=== PATIENT | female | born 1965 | race Caucasian/White ===

== ENCOUNTER → 2017-03-14 | Outpatient (CLI) | payer OTHER | LOC: CFH 09:22 | PROVIDERS: ATTEND Orthopaedic Surgery | DX: Z02.9 Encounter for administrative examinations, unspecified (principal) ==

== ENCOUNTER 2017-04-14 06:57 | Day surgery (SDC) | payer OTHER ==
[~2017-04-14] VITALS: Ht 167.6 cm; Wt 73.4 kg
[~2017-04-14 06:57] MED LIST: BUPIVACAINE/PF 0.5% ONE; FENTANYL PF 100 MCG/2ML ONE; MIDAZOLAM 1 MG/ML, 2ML ONE; cloniDINE/PF 100 MCG/ML, 10 ML ONE
[2017-04-14] MEDS ORDERED: hydrALAzine 20 MG/ML, 1ML IV PRN (07:30)
[2017-04-14] MEDS ORDERED: LORazepam 2 MG/ML, 1ML IVPush PRN (07:30)
[2017-04-14] MEDS ORDERED: PLEASE ENTER HEIGHT AND WEIGHT MC SCH (07:30)
[2017-04-14] MEDS ORDERED: MEPERIDINE/PF 25MG/0.5ML IVPush PRN (07:30)
[2017-04-14] MEDS ORDERED: LABETALOL 5MG/ML, 20ML IV PRN (07:30)
[2017-04-14] MEDS ORDERED: OXYcodone 5 MG/5 ML ORAL.SOL UDC PO PRN (07:30)
[2017-04-14] MEDS ORDERED: MIDAZOLAM 1 MG/ML, 2ML IV PRN (07:30)
[2017-04-14] MEDS ORDERED: ALBUTEROL/IPRATROPIUM 2.5MG/0.5MG, 3 ML NPPB PRN (07:30)
[2017-04-14] MEDS ORDERED: KETOROLAC 30 MG/1 ML IV PRN (07:30)
[2017-04-14] MEDS ORDERED: FENTANYL PF 100 MCG/2ML IV PRN (07:30)
[2017-04-14] MEDS ORDERED: METOCLOPRAMIDE 5 MG/ML, 2ML IV PRN (07:30)
[2017-04-14] MEDS ORDERED: HYDROmorphone 1 MG/ML, 1ML IV PRN (07:30)
[2017-04-14] MEDS ORDERED: PROMETHAZINE 25 MG/ML, 1ML IV PRN (07:30)
[2017-04-14] MEDS ORDERED: ONDANSETRON 2MG/ML, 2ML IVPush PRN (07:30)
[2017-04-14] MEDS ORDERED: ACETAMINOPHEN 325 MG TABLET PO PRN (07:30)
[2017-04-14] MEDS ORDERED: LACTATED RINGERS 1,000 ML IV SCH (07:41)
[2017-04-14 07:57] VITALS: BP 146/81
[2017-04-14] MEDS ORDERED: LIDOCAINE 1%, 2ML SQ PRN (08:00)
[2017-04-14 08:03] LABS: PATH.CAST-FLAG NOT PRESENT; SPERM-FLAG NOT PRESENT; SRC-FLAG NOT PRESENT; XTAL-FLAG NOT PRESENT; YLC-FLAG NOT PRESENT
[2017-04-14 08:04] LABS: HCG UR OBC PASS
[2017-04-14] MEDS ORDERED: SAXA5TAB PO (08:08)
[2017-04-14] MEDS ORDERED: METF850T2 PO (08:08)
[2017-04-14] MEDS ORDERED: SIMV10TA3 PO (08:08)
[2017-04-14] MEDS ORDERED: LEVO112T4 PO (08:08)
[2017-04-14] MEDS ORDERED: LOSA25TA5 PO (08:08)
[2017-04-14] MEDS ORDERED: INSU200I4 SQ (08:08)
[2017-04-14] MEDS ORDERED: FENO48TA5 PO (08:08)
[2017-04-14] MEDS ORDERED: LIDOCAINE 1%, 2ML ONE (08:14)
[2017-04-14] MEDS ORDERED: BUPIVACAINE/PF 0.5% ONE (08:38)
[2017-04-14] MEDS ORDERED: methylPREDNISolone*ACETATE* 80 MG/ML ONE (08:38)
[2017-04-14 08:51] LABS: ASPARTATE AMINO TRANSFERASE 23 U/L (15-37); BLOOD UREA NITROGEN 10 mg/dL (7-18)
[2017-04-14] MEDS ORDERED: metFORMIN 850 MG TABLET PO SCH (09:00)
[2017-04-14] MEDS ORDERED: LEVOTHYROXINE 112 MCG TABLET PO SCH (09:00)
[2017-04-14] MEDS ORDERED: TEMPLATE NON-FORMULARY MED. (Saxagliptin Hcl** (Onglyza**) 5 MG) PO SCH (09:00)
[2017-04-14] MEDS ORDERED: LOSARTAN 25MG TABLET PO SCH (09:00)
[2017-04-14] MEDS ORDERED: FENOFIBRATE NANOCRYSTALLIZED 48 MG PO SCH (09:00)
[2017-04-14] MEDS ORDERED: INSULIN DEGLUDEC 60 UNIT SQ SCH (09:00)
[2017-04-14] MEDS ORDERED: PROPOFOL 10 MG/ML, 20ML ONE (09:14)
[2017-04-14] MEDS ORDERED: SIMVASTATIN 10 MG TABLET PO SCH (21:00)
== END 2017-04-14 10:30 ==
LOC: OUT 06:57
PROVIDERS: ATTEND Orthopaedic Surgery
DX: M75.01 Adhesive capsulitis of right shoulder (principal); E11.9 Type 2 diabetes mellitus without complications; E78.5 Hyperlipidemia, unspecified; E03.9 Hypothyroidism, unspecified; I10 Essential (primary) hypertension
CPT/HCPCS: 20610; 23700; 36415; 80053; 81001; 81025; 82962; 87077; 87086; 87186; 93005; J0735; J1040; J2250; J2704; J3010; J3490

== ENCOUNTER → 2020-05-06 | Outpatient (CLI) | payer OTHER ==
[~2020-05-06] MED LIST changes: +ASPI-515 PO; -BUPIVACAINE/PF 0.5% ONE; +EMPA25TA PO; +FENO48TA10 PO; -FENTANYL PF 100 MCG/2ML ONE; +INSU200I4 SQ; +LEVO112T4 PO; +LEVO137T2 PO; +LOSA25TA25 PO; +METF850T10 PO; -MIDAZOLAM 1 MG/ML, 2ML ONE; +SAXA5TAB PO; +SIMV10TA18 PO; -cloniDINE/PF 100 MCG/ML, 10 ML ONE
== END | disposition home or self-care (01) ==
LOC: STAR 12:55
PROVIDERS: ATTEND Anesthesiology
DX: Z01.812 Encounter for preprocedural laboratory examination (principal); Z20.828 Contact with and (suspected) exposure to other viral communicable diseases
CPT/HCPCS: 36415; 87635

== ENCOUNTER 2020-05-08 05:09 | Day surgery (SDC) | payer OTHER ==
[~2020-05-08] VITALS: Ht 168.9 cm; Wt 70.0 kg
[~2020-05-08 05:09] MED LIST changes: -ASPI-515 PO; -EMPA25TA PO; -LEVO137T2 PO
[2020-05-08] MEDS ORDERED: methylPREDNISolone *ACETATE* 40 MG/ML ONE (06:08)
[2020-05-08] MEDS ORDERED: BUPIVACAINE/PF 0.5% ONE (06:08)
[2020-05-08] MEDS ORDERED: methylPREDNISolone*ACETATE* 80 MG/ML ONE (06:08)
[2020-05-08] MEDS ORDERED: EPINEPHRINE 1 MG/ML, 1ML ONE (06:08)
[2020-05-08] MEDS ORDERED: ASPI-515 PO (06:11)
[2020-05-08] MEDS ORDERED: LEVO137T2 PO (06:11)
[2020-05-08] MEDS ORDERED: EMPA25TA PO (06:11)
[2020-05-08] MEDS ORDERED: LACTATED RINGERS 1,000 ML IV ONE (06:12)
[2020-05-08] MEDS ORDERED: CHLORHEXIDINE 15 ML UDC MM STA (06:12)
[2020-05-08 06:13] VITALS: BP 120/76
[2020-05-08] MEDS ORDERED: CHLORHEXIDINE 15 ML UDC ONE (06:20)
[2020-05-08] MEDS ORDERED: FENTANYL PF 100 MCG/2ML ONE (06:36)
[2020-05-08] MEDS ORDERED: MIDAZOLAM 1 MG/ML, 2ML ONE (06:36)
[2020-05-08] MEDS ORDERED: PROPOFOL 10 MG/ML, 20ML ONE (06:49)
[2020-05-08 06:50] LABS: ALANINE AMINOTRANSFERASE 27 U/L (12-78); ALBUMIN 3.8 g/dL (3.4-5.0); ANION GAP 5 mmol/L (5-15); CALCIUM 9.4 mg/dL (8.5-10.1); CHLORIDE 109 mmol/L (98-107); CREATININE 0.57 mg/dL (0.55-1.02)
[2020-05-08 06:52] LABS: ALKALINE PHOSPHATASE 103 U/L (45-117); BILIRUBIN,TOTAL 0.5 mg/dL (0.2-1.0); TOTAL PROTEIN 7.3 g/dL (6.4-8.2)
== END 2020-05-08 08:30 | disposition home or self-care (01) ==
LOC: OUT 05:09
PROVIDERS: ATTEND Orthopaedic Surgery
DX: M75.02 Adhesive capsulitis of left shoulder (principal); Z20.828 Contact with and (suspected) exposure to other viral communicable diseases; G89.18 Other acute postprocedural pain; I10 Essential (primary) hypertension; E78.5 Hyperlipidemia, unspecified; E11.9 Type 2 diabetes mellitus without complications; Z79.890 Hormone replacement therapy; Z79.84 Long term (current) use of oral hypoglycemic drugs; Z79.899 Other long term (current) drug therapy
CPT/HCPCS: 23700; 36415; 64415; 80053; 81025; 82962; 87635; 93005; J1030; J2250; J2704; J3010; J7120; J0171; J1040